=== PATIENT | male | born 1970 ===

== ENCOUNTER 2018-11-16 09:39 | Emergency (ER) | payer OTHER ==
[~2018-11-16] VITALS: Ht 167.6 cm; Wt 70.8 kg
== END 2018-11-16 18:46 | disposition home or self-care (01) ==
LOC: ER 09:39
DX: N20.1 Calculus of ureter (principal); N20.0 Calculus of kidney

== ENCOUNTER 2018-11-22 04:40 | Emergency (ER) | payer OTHER ==
[~2018-11-22] VITALS: Ht 167.6 cm; Wt 70.3 kg
[2018-11-22] MEDS ORDERED: TAMS0.4C (04:52)
[2018-11-22] MEDS ORDERED: TAMS0.4C PO (10:25)
[2018-11-22] MEDS ORDERED: KETO10TA2 PO (10:25)
== END 2018-11-22 10:35 | disposition home or self-care (01) ==
LOC: ER 04:40
DX: N20.1 Calculus of ureter (principal); R10.12 Left upper quadrant pain; R10.32 Left lower quadrant pain

== ENCOUNTER → 2022-08-26 | Emergency (ER) | payer OTHER ==
[~2022-08-26] VITALS: Ht 170.2 cm; Wt 68.5 kg
[~2022-08-26] MED LIST: CLEOCIN HCL300 MG PO; KETO10TA2 PO; TAMS0.4C; TAMS0.4C PO
== END | disposition home or self-care (01) ==
LOC: ER 23:00
DX: K04.7 Periapical abscess without sinus (principal); R22.0 Localized swelling, mass and lump, head; Z91.041 Radiographic dye allergy status

== ENCOUNTER 2022-08-29 08:32 | Emergency (ER) | payer OTHER ==
[~2022-08-29] VITALS: Ht 170.2 cm; Wt 68.9 kg
== END 2022-08-29 10:09 | disposition home or self-care (01) ==
LOC: ER 08:32
DX: K04.7 Periapical abscess without sinus (principal); R22.0 Localized swelling, mass and lump, head; Z91.013 Allergy to seafood; Z91.041 Radiographic dye allergy status

== ENCOUNTER 2022-12-02 18:33 | Emergency (ER) | payer OTHER ==
[~2022-12-02] VITALS: Ht 172.7 cm; Wt 70.3 kg
[2022-12-02] MEDS ORDERED: TAMS0.4C PO (22:43)
[2022-12-02] MEDS ORDERED: CIPRO500 MG PO (22:43)
[2022-12-02] MEDS ORDERED: KETO10TA2 PO (22:43)
== END 2022-12-02 22:48 | disposition home or self-care (01) ==
LOC: ER 18:33
DX: N20.2 Calculus of kidney with calculus of ureter (principal); Z87.442 Personal history of urinary calculi; Z91.041 Radiographic dye allergy status; Z91.013 Allergy to seafood; K57.30 Diverticulosis of large intestine without perforation or abscess without bleeding

== ENCOUNTER 2023-12-20 05:50 | Emergency (ER) | payer OTHER ==
[~2023-12-20] VITALS: Ht 170.2 cm; Wt 70.3 kg
[~2023-12-20 05:50] MED LIST changes: +CIPRO500 MG PO
[2023-12-20 08:52] LABS: HEMATOCRIT 48.6 % (39.0-48.0); MEAN CELL VOLUME 88.9 fL (80.0-100.00); MEAN CORPUSCULAR HEMOGLOBIN 32.3 pg (27.00-32.0); MEAN CORPUSCULAR HGB CONC 36.3 g/dl (32.0-36.0); PLATELET COUNT 152 K/uL (150-450); RED BLOOD COUNT 5.47 M/uL (4.00-6.00); RED CELL DISTRIBUTION WIDTH 13.4 % (11.5-14.5)
[2023-12-20 08:53] LABS: HEMOGLOBIN 17.7 g/dL (13-16.00)
== END 2023-12-20 09:34 | disposition home or self-care (01) ==
LOC: ER 05:50
DX: U07.1 COVID-19 (principal); R53.81 Other malaise; Z91.041 Radiographic dye allergy status